=== PATIENT | female | born 1985 | race Caucasian/White ===

== ENCOUNTER 2017-12-21 04:45 | Emergency (ER) | payer MEDICAID ==
[~2017-12-21] VITALS: Ht 170.2 cm; Wt 86.2 kg
[2017-12-21 08:37] VITALS: BP 127/77
[2017-12-21 08:54] LABS: Urine Bacteria FEW /hpf (None Seen); Urine Blood Negative /uL (Negative); Urine Specific Gravity 1.005 (1.001-1.035); Urine WBC 1 /hpf (0 - 5)
[2017-12-21] MEDS: cefTRIAXone W LIDOCAINE 1 GM IM IM ONE (09:00)
[2017-12-21] MEDS: AZITHROMYCIN 250 MG TAB PO ONE (09:17)
[2017-12-21 09:25] LABS: Basophils # (auto) 0 uL; Basophils % (auto) 0.3 % (0.0-2.0); Eosinophils # (auto) 0.3 uL; Eosinophils % (auto) 4.4 % (0.0-7.0); Hematocrit 30.6 % (36.0-46.0); Hemoglobin 10.5 g/dL (12.2-16.2); Lymphocytes # (auto) 1.4 uL; Mean Corpuscular Hemoglobin 30.2 pg (28.0-32.0); Mean Corpuscular Hgb Conc. 34.3 g/dL (32.0-36.0); Monocytes # (auto) 0.4 uL; Monocytes % (auto) 5.4 % (0.0-12.0); Neutrophils # (auto) 5.6 uL; Neutrophils % (auto) 71.9 % (37.0-80.0); Nucleated Red Blood Cells % 0.1 %; Platelet Count (auto) 203 10^3/uL (140-450); Red Blood Cells 3.48 10^6/uL (4.0-5.20); Red Cell Distribution Width 13.8 % (11.8-14.3); White Blood Cell 7.8 10^3/uL (4.4-10.8)
[2017-12-21 09:43] LABS: Albumin 2.2 g/dL (3.4-5.0); BUN/Creatinine Ratio 15.1; Bilirubin, Total 0.2 mg/dL (0.2-1.0); Calcium 8.4 mg/dL (8.5-10.1); Potassium 3.5 mmol/L (3.5-5.1); Total Protein 5.8 g/dL (6.4-8.2)
[2017-12-24 13:57] LABS: Hepatitis B Surface Antigen Negative (Negative)
[2017-12-24 14:16] LABS: Hepatitis A Ab IgM Negative; Hepatitis B Core IgM Negative
[2017-12-24 17:15] LABS: Hepatitis C Antibody Negative (Negative)
== END 2017-12-21 10:49 | disposition home or self-care (01) ==
LOC: ER 04:45
DX: O99.89 Other specified diseases and conditions complicating pregnancy, childbirth and the puerperium (principal); O25.13 Malnutrition in pregnancy, third trimester; Z3A.33 33 weeks gestation of pregnancy; Z20.2 Contact with and (suspected) exposure to infections with a predominantly sexual mode of transmission
CPT/HCPCS: 36415; 80053; 80074; 81001; 85025; 86592; 86703; 87491; 87591; 96372; 99284; J0696